=== PATIENT | male | born 1990 ===

== ENCOUNTER 2016-12-09 11:28 | Emergency (ER) | payer SELFPAY ==
[~2016-12-09] VITALS: Ht 170.2 cm; Wt 64.0 kg
[2016-12-09 11:34] VITALS: BP 123/73; PULSE 72; RESP 16; TEMP 98; O2SAT 99
--- NOTE | 2016-12-09 11:47 | PD ---
HPI Chief Complaint: Complaint Time Seen by Provider: 11:43 Travel History International Travel<30 days: No Contact w/Intl Traveler<30days: No Traveled to known affect area: No History of Present Illness HPI Patient comes emergency Department complaining of possible allergic reaction on his penis. Patient went to bed last night when he woke up he had blisters on his penis. Patient states that he pops them and has clear drainage. Patient states he's had similar before but never quite this bad. Patient denies any pain with this. Denies any dysuria, testicular pain, or penile discharge. Patient denies doing anything for this. [facility] Past Medical History Medical History: Denies Significant Hx Past Surgical History Surgical History: No Previous Surgery Social History Alcohol Use: No Tobacco Use: No Substance Use: No Allergies-Medications (Allergen,Severity, Reaction): Coded Allergies: Ants (Verified Allergy, Unknown, BLISTER, 12/09/16) Reported Meds & Prescriptions Reported Meds & Active Scripts Active Acyclovir 200 Mg Cap 200 Mg PO 5 TIMES A DAY 7 Days Review of Systems Except as stated in HPI: all other systems reviewed are Neg Physical Exam Narrative GENERAL: Well-developed, well nourished, in no acute distress, and non-ill appearing. SKIN: Warm and dry. Vesicular lesions noted on the distal shaft of the penis just proximal to the glans penis. Rash is consistent with genital herpes. This exam was performed with presence of staff occupational therapist at all times. HEAD: Atraumatic. Normocephalic. EYES: Pupils equal and round. EOMI. No scleral icterus. No injection or drainage. ENT: No nasal bleeding or discharge. Mucous membranes pink and moist. NECK: Trachea midline. Supple. No nuclear rigidity. RESPIRATORY: No accessory muscle use. No respiratory distress. MUSCULOSKELETAL: No obvious deformities. No clubbing. No cyanosis. No edema. Full range of motion. NEUROLOGICAL: Awake and alert. No obvious cranial nerve deficits. Motor grossly within normal limits. Normal speech. PSYCHIATRIC: Appropriate mood and affect; insight and judgment normal. Data Data Last Documented VS Vital Signs Date Time Temp Pulse Resp B/P Pulse Ox O2 Delivery O2 Flow Rate FiO2 12/09/16 11:34 98.0 72 16 123/73 99 Room Air MDM Medical Decision Making Medical Screen Exam Complete: Yes Emergency Medical Condition: No Differential Diagnosis Allergic reaction, abscess, cellulitis, herpes, other Narrative Course Patient in no obvious distress upon re-evaluation. Patient was asked if they wanted to speak to my attending, which the patient did not wish to do at this time. Any questions/concerns in reference to patient diagnosis/condition discussed and clarified prior to patient's discharge. Reinforced sheer importance of close follow up with patient's primary physician or primary care clinic. Instructed patient to return to ED immediately, if symptoms return/ worsen. Pt showed understanding of above instructions. Further instructions and recommendations were detailed in discharge paperwork. Pt ambulated without difficulty out of ED at discharge. Diagnosis Primary Impression: Genital herpes Qualified Code: A60.01 - Herpes simplex infection of penis Referrals[facility] Patient Instructions: General Instructions, Genital Herpes Simplex (ED) Additional Instructions: Follow-up with your primary care physician and/or health Department for additional STD testing. Notify all sexual partners. Do not have intercourse anytime you have an outbreak as it is contagious. Practice safe sex to prevent further STDs and/or unwanted pregnancies. Return to the emergency department if symptoms get worse. Med/Other Pt SpecificInfo: Prescription(s) given Scripts Acyclovir 200 Mg Foa194 Mg PO 5 TIMES A DAY 7 Days Ref 0 Prov:Greg Klein MD 12/09/16 Disposition: 01 DISCHARGE HOME Condition: Stable Steven Zepeda Dec 09, 2016 11:47
[2016-12-09] MEDS ORDERED: ACYC200C66 PO (11:48)
== END 2016-12-09 12:28 | disposition home or self-care (01) ==
LOC: NEPC 11:28
DX: A60.00 Herpesviral infection of urogenital system, unspecified (principal)
CPT/HCPCS: 99283